=== PATIENT | female | born 1985 | race Caucasian/White ===

== ENCOUNTER 2020-10-06 23:58 | Emergency (ER) | payer OTHER ==
[~2020-10-06] VITALS: Ht 165.1 cm; Wt 141.6 kg
--- NOTE | 2020-10-07 00:56 | NUR ---
PT SEEN IN TRIAGE BY PA.
[2020-10-07 02:23] LABS: BASOPHILS % (AUTO) 1 % (0-1); EOSINOPHILS % (AUTO) 2 % (1-7); LYMPHOCYTES % (AUTO) 30 % (22-44); MD NO; MEAN CORPUSCULAR HEMOGLOBIN 28.3 pg (27.0-34.8); MEAN PLATELET VOLUME 9.1 fL (7.4-10.4); MONOCYTES % (AUTO) 6 % (2-9); NEUTROPHILS % (AUTO) 62 % (42-75); PLATELET COUNT 255 x10^3/uL (130-400); RED BLOOD COUNT 4.84 x10^6/uL (3.82-5.3); RED CELL DISTRIBUTION WIDTH 14.5 % (9.6-15.2)
[2020-10-07 02:32] LABS: ALANINE AMINOTRANSFERASE 124 U/L (12-78); ALBUMIN 3.9 g/dL (3.4-5.0); ANION GAP 5 mmol/L (5-15); CALCIUM 9.1 mg/dL (8.5-10.1); CHLORIDE 109 mmol/L (98-107); CREATININE 0.82 mg/dL (0.55-1.02)
[2020-10-07 02:37] LABS: ALKALINE PHOSPHATASE 134 U/L (45-117); BILIRUBIN,TOTAL 0.4 mg/dL (0.2-1.0); TOTAL PROTEIN 7.7 g/dL (6.4-8.2)
--- NOTE | 2020-10-07 05:19 | NUR ---
PATIENT TO ROOM FROM LOBBY AT THIS TIME.
[2020-10-07 05:23] VITALS: BP 128/80
--- NOTE | 2020-10-07 05:42 | NUR ---
PT AMBULATORY FROM TRIAGE C STEADY GAIT. VSS. CHANGED INTO GOWN. PT STATES HER PAIN SUBSIDED ~2HRS AGO. AT . AWARE OF PLAN TO DC HOME.
== END 2020-10-07 06:05 | disposition home or self-care (01) ==
LOC: ED 10-07 06:00
DX: R10.11 Right upper quadrant pain (principal); R10.12 Left upper quadrant pain; R10.13 Epigastric pain
CPT/HCPCS: 36415; 76700; 80053; 83690; 84703; 85025; 99284

== ENCOUNTER 2020-10-14 08:49 | Outpatient (CLI) | payer OTHER ==
[2020-10-14] MEDS ORDERED: ALBU18HF INH (11:01)
[2020-10-14] MEDS ORDERED: MONT10TA6 PO (11:01)
[2020-10-14] MEDS ORDERED: FLUT1BLS15 INH (11:01)
== END 2020-10-14 23:59 | disposition home or self-care (01) ==
LOC: STAR 08:49
PROVIDERS: ATTEND Specialist
DX: Z20.822 Contact with and (suspected) exposure to COVID-19 (principal); H69.83 Other specified disorders of Eustachian tube, bilateral
CPT/HCPCS: U0003; U0005

== ENCOUNTER 2020-10-20 10:11 | Day surgery (SDC) | payer OTHER ==
[~2020-10-20] VITALS: Ht 165.1 cm; Wt 138.6 kg
[~2020-10-20 10:11] MED LIST: ALBU18HF INH; FLUT1BLS15 INH; MONT10TA6 PO
[2020-10-20 10:50] VITALS: BP 136/84
[2020-10-20] MEDS ORDERED: CHLORHEXIDINE 15 ML UDC ONE (10:55)
[2020-10-20 10:57] LABS: HCG UR SG 1.026 (1.003-1.030)
[2020-10-20] MEDS ORDERED: CHLORHEXIDINE 15 ML UDC PO ONE (11:00)
[2020-10-20] MEDS ORDERED: LACTATED RINGERS 1,000 ML IV SCH (11:00)
[2020-10-20] MEDS ORDERED: OFLOXACIN OPHTH 0.3%, 5ML ONE (11:53)
[2020-10-20] MEDS ORDERED: COCAINE TOPICAL SOLN 4%, 4ML ONE ×2 (11:54→12:13)
[2020-10-20] MEDS ORDERED: BACITRACIN OINT 500U/GM, 15 GM ONE (11:54)
[2020-10-20] MEDS ORDERED: FENTANYL PF 250 MCG/5ML ONE ×2 (12:28→12:29)
[2020-10-20] MEDS ORDERED: MIDAZOLAM 1 MG/ML, 2ML ONE ×2 (12:28→14:36)
[2020-10-20] MEDS ORDERED: SUCCINYLCHOLINE 20 MG/ML, 10ML ONE (12:37)
[2020-10-20] MEDS ORDERED: ONDANSETRON 2MG/ML, 2ML ONE (12:37)
[2020-10-20] MEDS ORDERED: ROCURONIUM 10 MG/ML,10ML ONE (12:37)
[2020-10-20] MEDS ORDERED: SUGAMMADEX 200 MG/2 ML IVPush ONE (12:37)
[2020-10-20] MEDS ORDERED: ALBUTEROL SULFATE 200 PUFFS/8.5 GR INH ONE (12:37)
[2020-10-20] MEDS ORDERED: DEXAMETHASONE 4 MG/ML, 1ML ONE (12:37)
[2020-10-20] MEDS ORDERED: PROPOFOL 10 MG/ML, 20ML ONE (12:37)
[2020-10-20] MEDS ORDERED: CEFAZOLIN 1,000 MG ONE (12:37)
[2020-10-20] MEDS ORDERED: OFLOXACIN EAR DROPS 0.3%, 5ML ONE (13:01)
[2020-10-20] MEDS ORDERED: MEPERIDINE/PF 25MG/0.5ML IVPush PRN (13:30)
[2020-10-20] MEDS ORDERED: HALOPERIDOL 5 MG/ML IV PRN (13:30)
[2020-10-20] MEDS ORDERED: ACETAMINOPHEN 325 MG TABLET PO PRN (13:30)
[2020-10-20] MEDS ORDERED: HYDROmorphone 1 MG/ML, 1ML INJ IVPush PRN (13:30)
[2020-10-20] MEDS ORDERED: FENTANYL PF 100 MCG/2ML IV PRN (13:30)
[2020-10-20] MEDS ORDERED: ONDANSETRON 2MG/ML, 2ML IVPush PRN (13:30)
[2020-10-20] MEDS ORDERED: PROMETHAZINE 12.5 MG SUPP PR PRN (13:30)
[2020-10-20] MEDS ORDERED: OXYcodone 5 MG/5 ML ORAL.SOL UDC PO PRN (13:30)
[2020-10-20] MEDS ORDERED: EPHEDRINE 50 MG/ML, 1ML IM PRN (13:30)
[2020-10-20] MEDS ORDERED: MIDAZOLAM 1 MG/ML, 2ML IV PRN (13:30)
[2020-10-20] MEDS ORDERED: ALBUTEROL SULFATE 2.5 MG/3 ML NPPB PRN (13:30)
[2020-10-20] MEDS ORDERED: ALBUTEROL/IPRATROPIUM 2.5MG/0.5MG, 3 ML NPPB PRN (13:30)
[2020-10-20] MEDS ORDERED: LIDOCAINE 1%-EPI 1:100K, 30ML INFIL ONE (13:34)
[2020-10-20] MEDS ORDERED: FENTANYL PF 100 MCG/2ML ONE (13:55)
[2020-10-20] MEDS ORDERED: ALBUTEROL HFA 90 MCG/SPRAY INH ONE (15:00)
== END 2020-10-20 17:10 | disposition home or self-care (01) ==
LOC: OUT 10:11
PROVIDERS: ATTEND Specialist
DX: J34.2 Deviated nasal septum (principal); J34.3 Hypertrophy of nasal turbinates; H69.83 Other specified disorders of Eustachian tube, bilateral; H65.92 Unspecified nonsuppurative otitis media, left ear; H90.A32 Mixed conductive and sensorineural hearing loss, unilateral, left ear with restricted hearing on the contralateral side; J45.909 Unspecified asthma, uncomplicated; G47.33 Obstructive sleep apnea (adult) (pediatric); F41.9 Anxiety disorder, unspecified; F32.9 Major depressive disorder, single episode, unspecified; G43.909 Migraine, unspecified, not intractable, without status migrainosus; E66.01 Morbid (severe) obesity due to excess calories; Z68.43 Body mass index [BMI] 50.0-59.9, adult; Z79.899 Other long term (current) drug therapy; Z88.5 Allergy status to narcotic agent; Z88.8 Allergy status to other drugs, medicaments and biological substances; Z98.890 Other specified postprocedural states; Z83.3 Family history of diabetes mellitus; Z82.49 Family history of ischemic heart disease and other diseases of the circulatory system
CPT/HCPCS: 30140; 30520; 69436; 81025; C1776; J2250; J3010; J7120; J0690; J1100; J2405; J2704; J0330

== ENCOUNTER 2020-11-04 21:45 | Observation (INO) | payer OTHER ==
[~2020-11-04] VITALS: Ht 165.1 cm; Wt 141.1 kg
--- NOTE | 2020-11-04 22:00 | NUR ---
PT CAME INTO THE ED TONIGHT DUE TO UPPER RIGHT ABDOMINAL PAIN, PT REPROTS THIS PAIN HAS BEEN ON AND OFF FOR AWHILE BUT TONIGHT AFTER HAVING ICE CREAM IT AWOKE HER FROM HER SLEEP AND WAS INTOLERABLE. PT STATES SHE HAS BEEN SEEN AT MULTIPLE FACILITIES FOR THIS PAIN. TONIGHT IT IS ACCOMPANIED WITH NAUSEA. PT PLACED ON SPO2/BP MONITORING. MEDICATED PER MAR STATES SHE HAS A RIDE HOME LATER. WCWES. JAME MCCOY AT FOR EVAL AND POC.
[2020-11-04] MEDS ORDERED: MORPHINE SULFATE 4 MG/ML, 1ML ONE (22:16)
[2020-11-04] MEDS ORDERED: ONDANSETRON 2MG/ML, 2ML ONE (22:16)
[2020-11-04] MEDS ORDERED: MORPHINE SULFATE 4 MG/ML, 1ML IVPush PRN (22:30)
[2020-11-04] MEDS ORDERED: ONDANSETRON 2MG/ML, 2ML IVPush ONE (22:30)
[2020-11-04 22:55] LABS: BASOPHILS % (AUTO) 1 % (0-1); EOSINOPHILS % (AUTO) 3 % (1-7); LYMPHOCYTES % (AUTO) 32 % (22-44); MEAN CORPUSCULAR HGB CONC 33.7 g/dL (32.4-35.8); MEAN PLATELET VOLUME 9.3 fL (7.4-10.4); MONOCYTES % (AUTO) 6 % (2-9); NEUTROPHILS % (AUTO) 58 % (42-75); PLATELET COUNT 221 x10^3/uL (130-400); RED BLOOD COUNT 4.58 x10^6/uL (3.82-5.3); RED CELL DISTRIBUTION WIDTH 14.7 % (9.6-15.2)
[2020-11-04 23:07] LABS: ALANINE AMINOTRANSFERASE 263 U/L (12-78); ALBUMIN 3.5 g/dL (3.4-5.0); ANION GAP 10 mmol/L (5-15); CALCIUM 8.9 mg/dL (8.5-10.1); CHLORIDE 109 mmol/L (98-107); CREATININE 0.82 mg/dL (0.55-1.02)
[2020-11-04 23:12] LABS: ALKALINE PHOSPHATASE 196 U/L (45-117); BILIRUBIN,TOTAL 0.6 mg/dL (0.2-1.0); TOTAL PROTEIN 7.2 g/dL (6.4-8.2)
--- NOTE | 2020-11-05 00:22 | NUR ---
Patient is resting comfortably in bed. Bed in lowest, rails engaged, call light on lap. NAD, denies additional questions or needs, to be admitted. Vital Signs within normal limits. WCTM.
--- NOTE | 2020-11-05 01:15 | NUR ---
REPORT CALLED TO FLOOR RN. PT TRANSPORTED TO FLOOR IN NO ACUTE DISTRESS.
[2020-11-05 01:22] VITALS: BP 132/87
[2020-11-05] MEDS ORDERED: ACETAMINOPHEN 325 MG TABLET PO PRN (04:00)
[2020-11-05] MEDS ORDERED: ONDANSETRON 2MG/ML, 2ML IVPush PRN (04:00)
[2020-11-05] MEDS ORDERED: LABETALOL 5MG/ML, 20ML IVPush PRN (04:00)
[2020-11-05 06:25] LABS: ALBUMIN 3.3 g/dL (3.4-5.0); ANION GAP 7 mmol/L (5-15); CALCIUM 8.8 mg/dL (8.5-10.1); CHLORIDE 111 mmol/L (98-107)
[2020-11-05 06:28] LABS: ALANINE AMINOTRANSFERASE 255 U/L (12-78); ALKALINE PHOSPHATASE 178 U/L (45-117); BILIRUBIN,TOTAL 0.3 mg/dL (0.2-1.0); TOTAL PROTEIN 6.8 g/dL (6.4-8.2)
[2020-11-05 06:54] VITALS: BP 125/71
[2020-11-05] MEDS: BUDESONIDE 0.5 MG/2 ML INHA INH SCH ×2 (09:34→21:00)
[2020-11-05] MEDS: ALBUTEROL SULFATE 2.5 MG/3 ML NPPB SCH ×2 (09:34→21:00)
[2020-11-05] MEDS: morphine SULFATE 10 MG/ML, 1ML IVPush PRN (12:11)
[2020-11-05 12:14] VITALS: BP 123/71
[2020-11-05 19:10] VITALS: BP 144/89
[2020-11-06 00:44] VITALS: BP 126/70
[2020-11-06 05:48] LABS: ALBUMIN 3.2 g/dL (3.4-5.0); ANION GAP 6 mmol/L (5-15); CALCIUM 8.7 mg/dL (8.5-10.1); CHLORIDE 111 mmol/L (98-107)
[2020-11-06 05:52] LABS: ALANINE AMINOTRANSFERASE 184 U/L (12-78); ALKALINE PHOSPHATASE 148 U/L (45-117); BILIRUBIN,TOTAL 0.5 mg/dL (0.2-1.0); CREATININE 0.63 mg/dL (0.55-1.02); TOTAL PROTEIN 6.4 g/dL (6.4-8.2)
[2020-11-06 07:24] VITALS: BP 113/71
[2020-11-06] MEDS: ALBUTEROL SULFATE 2.5 MG/3 ML NPPB SCH ×2 (09:00→20:11)
[2020-11-06] MEDS: BUDESONIDE 0.5 MG/2 ML INHA INH SCH ×2 (09:00→20:11)
[2020-11-06] MEDS: SODIUM CHLORIDE 0.9% 1,000 ML IV SCH ×2 (13:01→20:30)
[2020-11-06] MEDS ORDERED: BUPIVACAINE/PF 0.5% ONE (13:24)
[2020-11-06] MEDS ORDERED: EPINEPHRINE 1 MG/ML, 1ML ONE (13:24)
[2020-11-06 14:00] VITALS: BP 127/70
[2020-11-06] MEDS ORDERED: MIDAZOLAM 1 MG/ML, 2ML ONE (15:27)
[2020-11-06] MEDS ORDERED: FENTANYL PF 250 MCG/5ML ONE (15:27)
[2020-11-06] MEDS ORDERED: PROPOFOL 50 ML ONE ×2 (15:27→16:41)
[2020-11-06] MEDS ORDERED: PROPOFOL 10 MG/ML, 20ML ONE (16:09)
[2020-11-06] MEDS ORDERED: CEFAZOLIN 1,000 MG ONE ×2 (16:09)
[2020-11-06] MEDS ORDERED: SUCCINYLCHOLINE 20 MG/ML, 10ML ONE (16:09)
[2020-11-06] MEDS ORDERED: DEXAMETHASONE 4 MG/ML, 5ML ONE (16:09)
[2020-11-06] MEDS ORDERED: ONDANSETRON 2MG/ML, 2ML ONE (16:09)
[2020-11-06] MEDS ORDERED: morphine SULFATE 10 MG/ML, 1ML IVPush PRN (16:30)
[2020-11-06] MEDS ORDERED: DIPHENHYDRAMINE 50 MG/ML, 1ML IVPush PRN ×2 (16:30→20:30)
[2020-11-06] MEDS ORDERED: LABETALOL 5MG/ML, 20ML IV PRN (16:30)
[2020-11-06] MEDS ORDERED: OXYcodone 5 MG/5 ML ORAL.SOL UDC PO PRN (16:30)
[2020-11-06] MEDS ORDERED: EPHEDRINE 50 MG/ML, 1ML IVPush PRN (16:30)
[2020-11-06] MEDS ORDERED: ONDANSETRON 2MG/ML, 2ML IVPush PRN ×2 (16:30→20:30)
[2020-11-06] MEDS ORDERED: PROMETHAZINE 25 MG/ML, 1ML IVPush PRN (16:30)
[2020-11-06] MEDS ORDERED: DIAZEPAM 5 MG/ML, 2ML IVPush PRN (16:30)
[2020-11-06] MEDS ORDERED: MEPERIDINE/PF 25MG/0.5ML IVPush PRN (16:30)
[2020-11-06] MEDS ORDERED: EPHEDRINE 50 MG/ML, 1ML IM PRN (16:30)
[2020-11-06] MEDS ORDERED: ACET325T26 PO (17:24)
[2020-11-06] MEDS ORDERED: POLY17PO5 PO (17:24)
[2020-11-06] MEDS ORDERED: OXYcodone 5 MG/5 ML ORAL.SOL UDC ONE (17:24)
[2020-11-06] MEDS ORDERED: FENTANYL PF 100 MCG/2ML ONE (17:24)
[2020-11-06] MEDS ORDERED: OXYC5TAB2 PO (17:24)
[2020-11-06] MEDS ORDERED: ACETAMINOPHEN 650 MG/20.3 ML UDC ONE (17:24)
[2020-11-06] MEDS: FENTANYL PF 100 MCG/2ML IV PRN ×3 (17:27→18:04)
[2020-11-06 19:48] VITALS: BP 125/86
[2020-11-06] MEDS ORDERED: HYDROmorphone 2 MG/ML, 1ML IV PRN (20:30)
[2020-11-06] MEDS ORDERED: KETOROLAC 30 MG/1 ML IV PRN (20:30)
[2020-11-06] MEDS: LACTATED RINGERS 1,000 ML IV SCH (20:30)
[2020-11-06] MEDS: IBUPROFEN 600 MG TABLET PO SCH (20:59)
[2020-11-06] MEDS ORDERED: ENOXAPARIN 40 MG/0.4 ML SQ SCH (21:00)
[2020-11-06] MEDS: OXYcodone 5 MG/5 ML ORAL.SOL UDC PO PRN (22:42)
[2020-11-07] MEDS: morphine SULFATE 10 MG/ML, 1ML IVPush PRN (00:05)
[2020-11-07 00:06] VITALS: BP 121/78
[2020-11-07] MEDS: SODIUM CHLORIDE 0.9% 1,000 ML IV SCH (03:33)
[2020-11-07 04:18] VITALS: BP 136/83
[2020-11-07] MEDS: OXYcodone 5 MG/5 ML ORAL.SOL UDC PO PRN ×2 (04:39→09:19)
[2020-11-07] MEDS: IBUPROFEN 600 MG TABLET PO SCH ×2 (05:54→11:30)
[2020-11-07] MEDS: LACTATED RINGERS 1,000 ML IV SCH (06:16)
[2020-11-07 07:10] VITALS: BP 119/71
[2020-11-07] MEDS: ALBUTEROL SULFATE 2.5 MG/3 ML NPPB SCH (07:35)
[2020-11-07] MEDS: BUDESONIDE 0.5 MG/2 ML INHA INH SCH (07:35)
[2020-11-07 09:12] LABS: BASOPHILS % (AUTO) 0 % (0-1); EOSINOPHILS % (AUTO) 0 % (1-7); LYMPHOCYTES % (AUTO) 18 % (22-44); MEAN CORPUSCULAR HEMOGLOBIN 28.6 pg (27.0-34.8); MEAN CORPUSCULAR HGB CONC 33.7 g/dL (32.4-35.8); MEAN PLATELET VOLUME 8.9 fL (7.4-10.4); MONOCYTES % (AUTO) 5 % (2-9); NEUTROPHILS % (AUTO) 77 % (42-75); PLATELET COUNT 204 x10^3/uL (130-400); RED BLOOD COUNT 4.26 x10^6/uL (3.82-5.3); RED CELL DISTRIBUTION WIDTH 14.6 % (9.6-15.2)
[2020-11-07 09:19] LABS: ALANINE AMINOTRANSFERASE 156 U/L (12-78); ALBUMIN 3.6 g/dL (3.4-5.0); ANION GAP 9 mmol/L (5-15); CALCIUM 9.1 mg/dL (8.5-10.1); CHLORIDE 109 mmol/L (98-107); CREATININE 0.87 mg/dL (0.55-1.02)
[2020-11-07 09:21] LABS: ALKALINE PHOSPHATASE 150 U/L (45-117); BILIRUBIN,TOTAL 0.3 mg/dL (0.2-1.0); TOTAL PROTEIN 7.2 g/dL (6.4-8.2)
[2020-11-07 13:05] VITALS: BP 128/87
== END 2020-11-07 13:28 | disposition home or self-care (01) ==
LOC: ED 22:12 → 3N 11-05 01:28 → INTOOBSV 11-05 01:28 → 4NE 11-06 17:55
PROVIDERS: ADMIT Family Medicine; ATTEND Internal Medicine
DX: K80.70 Calculus of gallbladder and bile duct without cholecystitis without obstruction (principal); Z20.822 Contact with and (suspected) exposure to COVID-19; J45.901 Unspecified asthma with (acute) exacerbation; E87.6 Hypokalemia; E66.01 Morbid (severe) obesity due to excess calories; R74.01 Elevation of levels of liver transaminase levels; R79.89 Other specified abnormal findings of blood chemistry; R11.0 Nausea; K58.9 Irritable bowel syndrome, unspecified; Z68.43 Body mass index [BMI] 50.0-59.9, adult; Z79.899 Other long term (current) drug therapy
CPT/HCPCS: 36415; 47562; 74181; 76700; 80053; 83690; 83735; 84100; 84703; 85025; 87635; 88304; 94640; 96361; 96372; 96374; 96375; 96376; 99284; G0378; J0171; J0330; J0690; J1100; J1650; J2250; J2270; J2405; J2704; J3010; J7030; J7613; J7626; S0020